=== PATIENT | male | born 1970 | race Two or more races ===

== ENCOUNTER 2023-01-08 05:10 | Day surgery (SDC) | payer OTHER ==
[~2023-01-08] VITALS: Ht 172.7 cm; Wt 89.8 kg
[2023-01-08] MEDS ORDERED: TRAMADOL HCL50 MG PO (08:46)
== END 2023-01-08 10:15 | disposition home or self-care (01) ==
LOC: CIR.AMB 05:10
PROVIDERS: ATTEND Surgery
DX: D17.22 Benign lipomatous neoplasm of skin and subcutaneous tissue of left arm (principal); D17.5 Benign lipomatous neoplasm of intra-abdominal organs; R22.2 Localized swelling, mass and lump, trunk; R22.32 Localized swelling, mass and lump, left upper limb; D49.2 Neoplasm of unspecified behavior of bone, soft tissue, and skin; Z20.822 Contact with and (suspected) exposure to COVID-19; I10 Essential (primary) hypertension